=== PATIENT | female | born 1960 | race Asian ===

== ENCOUNTER → 2022-04-19 | Day surgery (SDC) | payer MEDICARE, OTHER ==
[~2022-04-19] MED LIST: ACETAMINOPHEN 325MG TABLET PO PRN; AMLO10TA80 PO; ASPI-1497 PO; ATOR-2 PO; ATROPINE SULFATE 1MG/10ML SYR IV PRN; FENTANYL CITRATE/PF 50MCG/ML 2ML VIAL ONE; GABA-532 PO; HEPARIN SODIUM 1,000 UNIT/1ML VIAL IV ONE; INSU100C6 SQ; INSU100I28 SQ; IODIXANOL 320MG/ML 100 ML BOTTLE IV ONE; LIDOCAINE HCL/PF 2% 20MG/ML 5 ML/VIAL ONE; MIDAZOLAM HCL 2 MG/2 ML VIAL ONE; ONDANSETRON HCL 4MG/2ML INJ IV PRN; TRIA1TAB94 MT
== END | disposition home or self-care (01) ==
LOC: CCL 06:44
PROVIDERS: ATTEND Specialist
DX: R94.39 Abnormal result of other cardiovascular function study (principal); I25.10 Atherosclerotic heart disease of native coronary artery without angina pectoris; E11.9 Type 2 diabetes mellitus without complications; I10 Essential (primary) hypertension; I42.8 Other cardiomyopathies; Z79.82 Long term (current) use of aspirin; Z79.84 Long term (current) use of oral hypoglycemic drugs; Z79.899 Other long term (current) drug therapy; Z98.890 Other specified postprocedural states
CPT/HCPCS: 93458; C1769; C1893; J1644; J2250; J3010; J3490; Q9967

== ENCOUNTER 2022-09-21 09:02 | Inpatient (IN) | payer MEDICARE, OTHER ==
[~2022-09-21] VITALS: Ht 154.9 cm; Wt 56.0 kg
[2022-09-21] VITALS (10 sets, daily range): BP systolic 111–150; BP diastolic 61–83
[~2022-09-21 09:02] MED LIST changes: -ACETAMINOPHEN 325MG TABLET PO PRN; -ATROPINE SULFATE 1MG/10ML SYR IV PRN; -FENTANYL CITRATE/PF 50MCG/ML 2ML VIAL ONE; -HEPARIN SODIUM 1,000 UNIT/1ML VIAL IV ONE; -IODIXANOL 320MG/ML 100 ML BOTTLE IV ONE; +ISOS30TA91 PO; -LIDOCAINE HCL/PF 2% 20MG/ML 5 ML/VIAL ONE; -MIDAZOLAM HCL 2 MG/2 ML VIAL ONE; -ONDANSETRON HCL 4MG/2ML INJ IV PRN
[2022-09-21] MEDS ORDERED: DIPHENHYDRAMINE 50MG/ML VIAL ONE (11:58)
[2022-09-21] MEDS ORDERED: HYDROCORTISONE SOD SUCCINATE 250 MG/2 ML VIAL ONE (11:58)
[2022-09-21] MEDS ORDERED: FAMOTIDINE 20MG/2ML VIAL IV ONE (11:59)
[2022-09-21] MEDS ORDERED: LIDOCAINE HCL 1% 20ML VIAL (Pyxis) INJ ONE ×2 (12:06→12:43)
[2022-09-21] MEDS ORDERED: FENTANYL CITRATE/PF 50MCG/ML 2ML VIAL ONE (12:06)
[2022-09-21] MEDS ORDERED: IODIXANOL 320MG/ML 100 ML BOTTLE IV ONE (12:06)
[2022-09-21] MEDS ORDERED: HEPARIN 1000 UNITS/ML 10ML ONE (12:06)
[2022-09-21] MEDS ORDERED: MIDAZOLAM HCL 2 MG/2 ML VIAL ONE (12:06)
[2022-09-21] MEDS ORDERED: INSU100C6 SQ (12:11)
[2022-09-21] MEDS ORDERED: CLOP-31 PO (12:11)
[2022-09-21] MEDS ORDERED: METH-371 PO (12:11)
[2022-09-21] MEDS ORDERED: CLOPIDOGREL 75MG TABLET ONE (13:18)
[2022-09-21] MEDS ORDERED: ASPIRIN 325MG TABLET ONE (13:18)
[2022-09-21] MEDS ORDERED: ACETAMINOPHEN 325MG TABLET PO PRN (13:30)
[2022-09-21] MEDS ORDERED: ATROPINE SULFATE 1MG/10ML SYR IV PRN (13:30)
[2022-09-21] MEDS ORDERED: ONDANSETRON HCL 4MG/2ML INJ IV PRN (13:30)
[2022-09-21] MEDS ORDERED: ALPRAZOLAM 0.25 MG TABLET PO PRN (15:00)
[2022-09-21] MEDS ORDERED: ISOSORBIDE MONONITRATE 30MG TABLET SR 24HR PO SCH (15:00)
[2022-09-21] MEDS ORDERED: AMLODIPINE 5MG TABLET PO NR (15:00)
[2022-09-21] MEDS ORDERED: ZOLPIDEM TARTRATE 5MG TABLET PO PRN (21:00)
[2022-09-21] MEDS ORDERED: ATORVASTATIN CALCIUM 40MG TABLET PO SCH (21:00)
[2022-09-21] MEDS ORDERED: DEXTROSE 50% WATER 50ML SYRINGE IV PRN (21:30)
[2022-09-21] MEDS ORDERED: INSULIN LISPRO 100 UNITS/ML SUBCUT NR (21:30)
[2022-09-21] MEDS: BLOOD SUGAR DIAGNOSTIC STRIP TEST SCH (21:30)
[2022-09-21] MEDS ORDERED: INSULIN LISPRO 100 UNITS/ML SUBCUT SCH (21:45)
[2022-09-21] MEDS: GABAPENTIN 300MG CAPSULE PO SCH (21:50)
[2022-09-21] MEDS: AMLODIPINE 5MG TABLET PO SCH (21:51)
[2022-09-22] VITALS: BP 120/70
[2022-09-22 04:00] VITALS: BP 109/54
[2022-09-22 06:22] LABS: BASOPHILS % 0.1 % (0.0-2.0); HEMATOCRIT. 26.9 % (36.0-48.0); HEMOGLOBIN. 9.1 g/dL (12.0-16.0); LYMPHOCYTES % 11.1 % (20.0-50.0); MEAN CORPUSCULAR HEMOGLOBIN 29.5 pg (28.0-32.0); MEAN CORPUSCULAR VOLUME 87.3 fL (81.0-99.0); MEAN PLATELET VOLUME 8.2 fl (7.4-10.4); MONOCYTES % 5.9 % (2.0-8.0); NEUTROPHILS % 82.9 % (40.0-76.0); PLATELET 272 x1000/uL (130-400); RED BLOOD CELL COUNT 3.08 mill/uL (4.2-5.4); RED CELL DISTRIBUTION WIDTH 14.2 % (11.6-14.6)
[2022-09-22] MEDS: GABAPENTIN 300MG CAPSULE PO SCH (06:28)
[2022-09-22] MEDS: BLOOD SUGAR DIAGNOSTIC STRIP TEST SCH (06:28)
[2022-09-22 06:35] LABS: CHLORIDE 110 mEq/L (98-107)
[2022-09-22] MEDS ORDERED: INSULIN LISPRO 100 UNITS/ML SUBCUT SCH (07:20)
[2022-09-22 08:00] VITALS: BP 114/66
[2022-09-22] MEDS ORDERED: ASPIRIN 325MG TABLET PO SCH (09:00)
[2022-09-22] MEDS ORDERED: CLOPIDOGREL 75MG TABLET PO SCH (09:00)
[2022-09-22] MEDS: AMLODIPINE 5MG TABLET PO SCH (09:05)
[2022-09-22 11:53] VITALS: BP 96/61
== END 2022-09-22 11:30 | disposition home or self-care (01) | DRG 253 ==
LOC: CCL 09:02 → 3WST 14:35
PROVIDERS: ADMIT Specialist; ATTEND Specialist
PROC: B41F1ZZ Fluoroscopy of Right Lower Extremity Arteries using Low Osmolar Contrast (ICD-10-PCS; principal; 2022-09-21)
PROC: 047K3DZ Dilation of Right Femoral Artery with Intraluminal Device, Percutaneous Approach (ICD-10-PCS; 2022-09-21)
DX: E11.51 Type 2 diabetes mellitus with diabetic peripheral angiopathy without gangrene (principal); I42.9 Cardiomyopathy, unspecified; I50.22 Chronic systolic (congestive) heart failure; E78.5 Hyperlipidemia, unspecified; I11.0 Hypertensive heart disease with heart failure; I25.10 Atherosclerotic heart disease of native coronary artery without angina pectoris; I25.2 Old myocardial infarction; Z95.5 Presence of coronary angioplasty implant and graft; D64.9 Anemia, unspecified; F41.9 Anxiety disorder, unspecified; Z79.4 Long term (current) use of insulin; Z91.041 Radiographic dye allergy status; Z88.6 Allergy status to analgesic agent
CPT/HCPCS: 36415; 37226; 75710; 80048; 82962; 83036; 85025; 85347; C1725; C1726; C1769; C1876; C1893; C1894; J1200; J1644; J1720; J1815; J2250; J3010; J3490; Q9967

== ENCOUNTER 2022-09-26 16:52 | Inpatient (IN) | payer MEDICARE, OTHER ==
[~2022-09-26] VITALS: Ht 147.3 cm; Wt 53.8 kg
[~2022-09-26 16:52] MED LIST changes: +CLOP-31 PO; +METH-371 PO
[2022-09-26] MEDS ORDERED: ASPIRIN 81MG TABLET PO ONE (17:30)
[2022-09-26 17:44] LABS: BASOPHILS % 0.6 % (0.0-2.0); EOSINOPHILS % 2.6 % (0.0-5.0); HEMATOCRIT. 31.6 % (36.0-48.0); HEMOGLOBIN. 10.6 g/dL (12.0-16.0); LYMPHOCYTES % 20.3 % (20.0-50.0); MEAN CORPUSCULAR HEMOGLOBIN 29.1 pg (28.0-32.0); MEAN CORPUSCULAR VOLUME 86.9 fL (81.0-99.0); MEAN PLATELET VOLUME 7.8 fl (7.4-10.4); MONOCYTES % 5.7 % (2.0-8.0); NEUTROPHILS % 70.8 % (40.0-76.0); PLATELET 310 x1000/uL (130-400); RED BLOOD CELL COUNT 3.63 mill/uL (4.2-5.4); RED CELL DISTRIBUTION WIDTH 14.9 % (11.6-14.6)
[2022-09-26 17:50] LABS: CHLORIDE 112 mEq/L (98-107)
[2022-09-26] MEDS: NITROGLYCERIN 0.4MG TABLET SL SL PRN ×2 (18:22→20:28)
[2022-09-26] MEDS ORDERED: HEPARIN 5000 UNITS/ML VIAL IV ONE (18:45)
[2022-09-26] MEDS ORDERED: HEPARIN 25,000 UNITS PREMIX 250 ML IV SCH ×2 (18:45→21:00)
[2022-09-26 19:00] LABS: INR 0.9
[2022-09-26] MEDS ORDERED: POTASSIUM CHLORIDE 20MEQ TABLET SR PO ONE (19:15)
[2022-09-26] MEDS ORDERED: ONDANSETRON HCL 4MG/2ML INJ IV STA (20:20)
[2022-09-26] MEDS ORDERED: MORPHINE SULFATE 4 MG/ML CPJ (NOT FOR IM USE) IV STA (20:20)
[2022-09-27] VITALS (56 sets, daily range): BP systolic 103–158; BP diastolic 22–126
[2022-09-27] MEDS ORDERED: HEPARIN BOLUS PRN aPTT <30 IV (03:00)
[2022-09-27] MEDS ORDERED: HEPARIN BOLUS PRN aPTT 30-44 IV (03:00)
[2022-09-27] MEDS ORDERED: BLOOD SUGAR DIAGNOSTIC STRIP TEST SCH (06:00)
[2022-09-27] MEDS ORDERED: ACETAMINOPHEN 325MG TABLET PO PRN (06:45)
[2022-09-27] MEDS ORDERED: DEXTROSE 50% WATER 50ML SYRINGE IV PRN ×2 (06:45→13:15)
[2022-09-27] MEDS ORDERED: AMLODIPINE 10MG TABLET PO SCH (09:00)
[2022-09-27] MEDS ORDERED: ISOSORBIDE MONONITRATE 30MG TABLET SR 24HR PO SCH (09:00)
[2022-09-27] MEDS ORDERED: DILTIAZEM HCL 180MG CAPSULE CD 24HR PO SCH (09:00)
[2022-09-27] MEDS ORDERED: CLOPIDOGREL 75MG TABLET PO SCH (09:00)
[2022-09-27] MEDS ORDERED: ASPIRIN 81MG EC TABLET PO SCH (09:00)
[2022-09-27] MEDS ORDERED: FUROSEMIDE 100MG/10ML VIAL IVP NR (09:30)
[2022-09-27] MEDS ORDERED: POTASSIUM CHLORIDE 20MEQ TABLET SR PO NR (09:45)
[2022-09-27] MEDS ORDERED: CLOPIDOGREL 75MG TABLET PO NR (10:00)
[2022-09-27] MEDS ORDERED: MORPHINE SULFATE 2 MG/ML CPJ (NOT FOR IM USE) IV NR (10:30)
[2022-09-27] MEDS ORDERED: POTASSIUM CHLORIDE INJ 40 MEQ in DEXT 5% WATER 250 ML IV ONE (10:30)
[2022-09-27] MEDS: ASPIRIN 81MG EC TABLET PO SCH (10:54)
[2022-09-27] MEDS: NITROGLYCERIN 50MG PREMIX 250 ML IV SCH ×2 (10:56→18:36)
[2022-09-27] MEDS: BLOOD SUGAR DIAGNOSTIC STRIP TEST SCH ×2 (12:00→18:05)
[2022-09-27 13:11] LABS: BASOPHILS % 0.2 % (0.0-2.0); EOSINOPHILS % 0.2 % (0.0-5.0); HEMATOCRIT. 37.4 % (36.0-48.0); HEMOGLOBIN. 11.9 g/dL (12.0-16.0); LYMPHOCYTES % 10.8 % (20.0-50.0); MEAN CORPUSCULAR HEMOGLOBIN 28.4 pg (28.0-32.0); MEAN CORPUSCULAR VOLUME 89.5 fL (81.0-99.0); MEAN PLATELET VOLUME 8.9 fl (7.4-10.4); MONOCYTES % 4.4 % (2.0-8.0); NEUTROPHILS % 84.4 % (40.0-76.0); PLATELET 341 x1000/uL (130-400); RED BLOOD CELL COUNT 4.18 mill/uL (4.2-5.4); RED CELL DISTRIBUTION WIDTH 15.1 % (11.6-14.6)
[2022-09-27 13:29] LABS: CHLORIDE 108 mEq/L (98-107)
[2022-09-27] MEDS ORDERED: IPRATROPIUM/ALBUTEROL 0.5-3(2.5)MG/3ML NEB HHN PRN (14:00)
[2022-09-27] MEDS: ENOXAPARIN 60MG/0.6ML SYR SUBCUT SCH ×2 (14:30→21:28)
[2022-09-27] MEDS: MORPHINE SULFATE 2 MG/ML CPJ (NOT FOR IM USE) IV PRN (14:31)
[2022-09-27] MEDS: INSULIN LISPRO 100 UNITS/ML SUBCUT SCH ×2 (14:32→18:57)
[2022-09-27] MEDS ORDERED: NALOXONE HCL 0.4MG/ML VIAL IV PRN (16:00)
[2022-09-27 16:42] LABS: BG BASE EXCESS -0.8 mmol/L (-2.0-2.0); BG CARBOXYHEMOGLOBIN 0.3 % (0.5-1.5); BG DEOXYHEMOGLOBIN 4.2 % (0.0-5.0); BG FRACTION INSPIRED OXYGEN 36; BG HCO3 ACT 22.6 mmol/L (22.0-26.0); BG METHEMOGLOBIN 0.1 % (0.0-1.5); BG OXYGEN SATURATION 95.8 % (92.0-98.5); BG OXYHEMOGLOBIN 95.4 % (94.0-97.0); BG PCO2 33.1 mmHg (35.0-45.0); BG PH 7.453 (7.350-7.450); BG PO2 81.1 mmHg (75.0-100.0); BG SAMPLE SITE RIGHT BRACHIAL; BG TOTAL HEMOGLOBIN 11.1 g/dL (12.0-18.0); BG VENT MODE NASAL CANNULA
[2022-09-27] MEDS ORDERED: IBUPROFEN 200MG TABLET PO PRN (17:00)
[2022-09-27] MEDS: ATORVASTATIN CALCIUM 40MG TABLET PO SCH (21:04)
[2022-09-27] MEDS: FUROSEMIDE 40MG/4ML VIAL IVP SCH (21:05)
[2022-09-27] MEDS: AMLODIPINE 2.5MG TABLET PO SCH (21:05)
[2022-09-28] VITALS (89 sets, daily range): BP systolic 85–148; BP diastolic 38–107
[2022-09-28] MEDS: NITROGLYCERIN 50MG PREMIX 250 ML IV SCH ×2 (00:42→22:07)
[2022-09-28] MEDS: INSULIN LISPRO 100 UNITS/ML SUBCUT SCH ×4 (01:12→17:32)
[2022-09-28] MEDS: BLOOD SUGAR DIAGNOSTIC STRIP TEST SCH ×5 (01:15→21:00)
[2022-09-28] MEDS: MORPHINE SULFATE 2 MG/ML CPJ (NOT FOR IM USE) IV PRN (04:38)
[2022-09-28 05:46] LABS: BASOPHILS % 0.3 % (0.0-2.0); EOSINOPHILS % 2.5 % (0.0-5.0); HEMATOCRIT. 30.2 % (36.0-48.0); HEMOGLOBIN. 10.2 g/dL (12.0-16.0); LYMPHOCYTES % 22.1 % (20.0-50.0); MEAN CORPUSCULAR HEMOGLOBIN 29.3 pg (28.0-32.0); MEAN CORPUSCULAR VOLUME 86.8 fL (81.0-99.0); NEUTROPHILS % 67.1 % (40.0-76.0); PLATELET 349 x1000/uL (130-400); RED BLOOD CELL COUNT 3.47 mill/uL (4.2-5.4); RED CELL DISTRIBUTION WIDTH 14.4 % (11.6-14.6)
[2022-09-28 06:17] LABS: CHLORIDE 108 mEq/L (98-107)
[2022-09-28 08:15] LABS: BG BASE EXCESS 1.2 mmol/L (-2.0-2.0); BG CARBOXYHEMOGLOBIN 0.3 % (0.5-1.5); BG DEOXYHEMOGLOBIN 3.4 % (0.0-5.0); BG FRACTION INSPIRED OXYGEN 32; BG HCO3 ACT 23.7 mmol/L (22.0-26.0); BG METHEMOGLOBIN 0.3 % (0.0-1.5); BG OXYGEN SATURATION 96.6 % (92.0-98.5); BG PCO2 30.1 mmHg (35.0-45.0); BG PH 7.514 (7.350-7.450); BG PO2 86.6 mmHg (75.0-100.0); BG SAMPLE SITE RIGHT BRACHIAL; BG TOTAL HEMOGLOBIN 9.6 g/dL (12.0-18.0); BG TOTAL RESPIRATORY RATE 18 b/min; BG VENT MODE NASAL CANNULA
[2022-09-28] MEDS: AMLODIPINE 2.5MG TABLET PO SCH (09:00)
[2022-09-28] MEDS: FUROSEMIDE 40MG/4ML VIAL IVP SCH ×2 (09:00→21:25)
[2022-09-28] MEDS: ASPIRIN 81MG EC TABLET PO SCH (09:00)
[2022-09-28] MEDS: CLOPIDOGREL 75MG TABLET PO SCH (09:00)
[2022-09-28] MEDS ORDERED: DIPHENHYDRAMINE 50MG/ML VIAL IV SCH (09:15)
[2022-09-28] MEDS ORDERED: ONDANSETRON HCL 4MG/2ML INJ IV NR (09:15)
[2022-09-28] MEDS ORDERED: FAMOTIDINE 20MG/2ML VIAL IV SCH (09:15)
[2022-09-28] MEDS ORDERED: HYDROCORTISONE SOD SUCCINATE 100 MG/2 ML VIAL IV SCH (09:15)
[2022-09-28] MEDS ORDERED: DIPHENHYDRAMINE 50MG/ML VIAL ONE (09:24)
[2022-09-28] MEDS ORDERED: FAMOTIDINE 20MG/2ML VIAL IV ONE (09:24)
[2022-09-28] MEDS ORDERED: IODIXANOL 320MG/ML 100 ML BOTTLE IV ONE (09:24)
[2022-09-28] MEDS ORDERED: HEPARIN 1000 UNITS/ML 10ML ONE (09:24)
[2022-09-28] MEDS ORDERED: LIDOCAINE HCL 1% 20ML VIAL (Pyxis) INJ ONE (09:24)
[2022-09-28] MEDS ORDERED: HYDROCORTISONE SOD SUCCINATE 250 MG/2 ML VIAL ONE (09:24)
[2022-09-28] MEDS ORDERED: ONDANSETRON HCL 4MG/2ML INJ IV PRN ×2 (09:30→11:00)
[2022-09-28] MEDS ORDERED: ASPIRIN/SOD BICARB/CITRIC ACID 324MG TAB EFF ONE (09:55)
[2022-09-28] MEDS ORDERED: FENTANYL CITRATE/PF 50MCG/ML 2ML VIAL ONE (10:14)
[2022-09-28] MEDS ORDERED: MIDAZOLAM HCL 2 MG/2 ML VIAL ONE (10:14)
[2022-09-28] MEDS ORDERED: MORPHINE SULFATE 2 MG/ML CPJ (NOT FOR IM USE) IV PRN (11:00)
[2022-09-28] MEDS ORDERED: ACETAMINOPHEN 325MG TABLET PO PRN (11:00)
[2022-09-28] MEDS ORDERED: ATROPINE SULFATE 1MG/10ML SYR IV PRN (11:00)
[2022-09-28] MEDS ORDERED: CARVEDILOL 3.125 MG TABLET PO NR (11:15)
[2022-09-28] MEDS ORDERED: NITROGLYCERIN 50MCG/ML 10ML VIAL (CATH LAB) IV ONE (12:00)
[2022-09-28] MEDS ORDERED: NICARDIPINE 100MCG/ML 10ML VIAL (CATH LAB) IV ONE (12:00)
[2022-09-28] MEDS: SPIRONOLACTONE 25MG TABLET PO SCH (12:19)
[2022-09-28] MEDS: LOSARTAN POTASSIUM 25 MG TABLET PO SCH (14:00)
[2022-09-28] MEDS: ATORVASTATIN CALCIUM 40MG TABLET PO SCH (21:25)
[2022-09-28] MEDS ORDERED: INSULIN GLARGINE 100 UNITS/ML SUBCUT SCH (22:09)
[2022-09-28] MEDS ORDERED: DEXTROSE 50% WATER 50ML SYRINGE IV PRN (22:15)
[2022-09-29] VITALS (48 sets, daily range): BP systolic 38–142; BP diastolic 19–95
[2022-09-29] MEDS: BLOOD SUGAR DIAGNOSTIC STRIP TEST SCH ×4 (05:12→20:46)
[2022-09-29 05:27] LABS: BASOPHILS % 0.3 % (0.0-2.0); HEMATOCRIT. 27.9 % (36.0-48.0); HEMOGLOBIN. 9.3 g/dL (12.0-16.0); LYMPHOCYTES % 13.5 % (20.0-50.0); MEAN CORPUSCULAR HEMOGLOBIN 29.1 pg (28.0-32.0); MEAN CORPUSCULAR VOLUME 87.4 fL (81.0-99.0); MEAN PLATELET VOLUME 7.8 fl (7.4-10.4); NEUTROPHILS % 78.2 % (40.0-76.0); PLATELET 310 x1000/uL (130-400); RED BLOOD CELL COUNT 3.19 mill/uL (4.2-5.4); RED CELL DISTRIBUTION WIDTH 14.6 % (11.6-14.6)
[2022-09-29] MEDS: INSULIN LISPRO 100 UNITS/ML SUBCUT SCH ×4 (06:05→20:46)
[2022-09-29] MEDS: FUROSEMIDE 40MG/4ML VIAL IVP SCH ×2 (08:13→20:45)
[2022-09-29] MEDS: ENOXAPARIN 40MG/0.4ML SYR SUBCUT SCH (08:14)
[2022-09-29] MEDS: ASPIRIN 81MG EC TABLET PO SCH (08:15)
[2022-09-29] MEDS: CLOPIDOGREL 75MG TABLET PO SCH (08:15)
[2022-09-29] MEDS: SPIRONOLACTONE 25MG TABLET PO SCH (08:16)
[2022-09-29] MEDS: CARVEDILOL 3.125 MG TABLET PO SCH ×2 (08:17→20:45)
[2022-09-29] MEDS: LOSARTAN POTASSIUM 25 MG TABLET PO SCH (08:17)
[2022-09-29] MEDS: INSULIN GLARGINE 100 UNITS/ML SUBCUT SCH ×2 (10:00→21:06)
[2022-09-29 10:06] LABS: BG BASE EXCESS 3.7 mmol/L (-2.0-2.0); BG CARBOXYHEMOGLOBIN 0.3 % (0.5-1.5); BG DEOXYHEMOGLOBIN 10.7 % (0.0-5.0); BG HCO3 ACT 26.6 mmol/L (22.0-26.0); BG METHEMOGLOBIN 0.7 % (0.0-1.5); BG OXYGEN SATURATION 89.2 % (92.0-98.5); BG OXYHEMOGLOBIN 88.3 % (94.0-97.0); BG PCO2 34.4 mmHg (35.0-45.0); BG PH 7.507 (7.350-7.450); BG TOTAL HEMOGLOBIN 10.6 g/dL (12.0-18.0)
[2022-09-29] MEDS ORDERED: POTASSIUM CHLORIDE 20MEQ/PACKET PO SCH (11:00)
[2022-09-29 11:21] LABS: BG FRACTION INSPIRED OXYGEN 21; BG SAMPLE SITE RIGHT RADIAL; BG VENT MODE ROOM AIR
[2022-09-29] MEDS: NITROGLYCERIN OINT 1GM/INCH UDPKT TD SCH ×2 (14:00→20:46)
[2022-09-29] MEDS: ATORVASTATIN CALCIUM 40MG TABLET PO SCH (20:45)
[2022-09-30] VITALS (9 sets, daily range): BP systolic 99–142; BP diastolic 42–63
[2022-09-30] MEDS: NITROGLYCERIN OINT 1GM/INCH UDPKT TD SCH ×3 (06:33→21:50)
[2022-09-30] MEDS: INSULIN LISPRO 100 UNITS/ML SUBCUT SCH ×4 (06:33→21:00)
[2022-09-30] MEDS: BLOOD SUGAR DIAGNOSTIC STRIP TEST SCH ×4 (06:33→21:42)
[2022-09-30 06:40] LABS: BASOPHILS % 0.3 % (0.0-2.0); EOSINOPHILS % 3.2 % (0.0-5.0); HEMATOCRIT. 28.6 % (36.0-48.0); HEMOGLOBIN. 9.8 g/dL (12.0-16.0); LYMPHOCYTES % 22.2 % (20.0-50.0); MEAN CORPUSCULAR HEMOGLOBIN 29.4 pg (28.0-32.0); MEAN PLATELET VOLUME 7.4 fl (7.4-10.4); MONOCYTES % 7.7 % (2.0-8.0); NEUTROPHILS % 66.6 % (40.0-76.0); PLATELET 312 x1000/uL (130-400); RED BLOOD CELL COUNT 3.32 mill/uL (4.2-5.4); RED CELL DISTRIBUTION WIDTH 14.5 % (11.6-14.6)
[2022-09-30] MEDS: POTASSIUM CHLORIDE 20MEQ/PACKET PO SCH (09:14)
[2022-09-30] MEDS: CLOPIDOGREL 75MG TABLET PO SCH (09:14)
[2022-09-30] MEDS: ASPIRIN 81MG EC TABLET PO SCH (09:15)
[2022-09-30] MEDS: CARVEDILOL 3.125 MG TABLET PO SCH (09:15)
[2022-09-30] MEDS: LOSARTAN POTASSIUM 25 MG TABLET PO SCH (09:15)
[2022-09-30] MEDS: FUROSEMIDE 40MG/4ML VIAL IVP SCH ×2 (09:15→21:00)
[2022-09-30] MEDS: ENOXAPARIN 40MG/0.4ML SYR SUBCUT SCH (09:16)
[2022-09-30] MEDS: INSULIN GLARGINE 100 UNITS/ML SUBCUT SCH ×2 (09:21→21:44)
[2022-09-30 10:23] LABS: BG BASE EXCESS 5.5 mmol/L (-2.0-2.0); BG CARBOXYHEMOGLOBIN 0.3 % (0.5-1.5); BG DEOXYHEMOGLOBIN 2.7 % (0.0-5.0); BG FRACTION INSPIRED OXYGEN 21; BG HCO3 ACT 26.3 mmol/L (22.0-26.0); BG METHEMOGLOBIN 0.3 % (0.0-1.5); BG OXYGEN SATURATION 97.3 % (92.0-98.5); BG OXYHEMOGLOBIN 96.7 % (94.0-97.0); BG PCO2 26.4 mmHg (35.0-45.0); BG PH 7.617 (7.350-7.450); BG PO2 85.2 mmHg (75.0-100.0); BG SAMPLE SITE RIGHT BRACHIAL; BG TOTAL HEMOGLOBIN 10.5 g/dL (12.0-18.0); BG VENT MODE ROOM AIR
[2022-09-30] MEDS: CARVEDILOL 6.25 MG TABLET PO SCH (21:00)
[2022-09-30] MEDS: ATORVASTATIN CALCIUM 40MG TABLET PO SCH (21:42)
[2022-10-01] MEDS: NITROGLYCERIN OINT 1GM/INCH UDPKT TD SCH ×3 (06:00→20:08)
[2022-10-01] MEDS: BLOOD SUGAR DIAGNOSTIC STRIP TEST SCH ×4 (07:01→20:07)
[2022-10-01] MEDS: INSULIN LISPRO 100 UNITS/ML SUBCUT SCH ×4 (07:01→20:07)
[2022-10-01 07:06] LABS: BASOPHILS % 0.7 % (0.0-2.0); EOSINOPHILS % 2.2 % (0.0-5.0); HEMATOCRIT. 30.1 % (36.0-48.0); HEMOGLOBIN. 10.3 g/dL (12.0-16.0); LYMPHOCYTES % 16.7 % (20.0-50.0); MEAN CORPUSCULAR HEMOGLOBIN 29.6 pg (28.0-32.0); MEAN CORPUSCULAR VOLUME 86.8 fL (81.0-99.0); MONOCYTES % 9.3 % (2.0-8.0); NEUTROPHILS % 71.1 % (40.0-76.0); PLATELET 327 x1000/uL (130-400); RED BLOOD CELL COUNT 3.47 mill/uL (4.2-5.4)
[2022-10-01 07:22] LABS: CHLORIDE 107 mEq/L (98-107)
[2022-10-01 08:00] VITALS: BP 115/62
[2022-10-01] MEDS: LOSARTAN POTASSIUM 25 MG TABLET PO SCH (08:58)
[2022-10-01] MEDS: ASPIRIN 81MG EC TABLET PO SCH (08:58)
[2022-10-01] MEDS: POTASSIUM CHLORIDE 20MEQ/PACKET PO SCH (08:58)
[2022-10-01] MEDS: ENOXAPARIN 40MG/0.4ML SYR SUBCUT SCH (08:59)
[2022-10-01] MEDS: CARVEDILOL 6.25 MG TABLET PO SCH ×2 (08:59→20:08)
[2022-10-01] MEDS: FUROSEMIDE 40MG/4ML VIAL IVP SCH ×2 (08:59→20:27)
[2022-10-01] MEDS: CLOPIDOGREL 75MG TABLET PO SCH (09:00)
[2022-10-01] MEDS: INSULIN GLARGINE 100 UNITS/ML SUBCUT SCH (09:06)
[2022-10-01] MEDS ORDERED: POTASSIUM CHLORIDE 20MEQ TABLET SR PO NR (09:30)
[2022-10-01] MEDS ORDERED: POTASSIUM CHLORIDE 20MEQ/PACKET PO NR (09:45)
[2022-10-01 12:00] VITALS: BP 98/57
[2022-10-01] MEDS ORDERED: IPRATROPIUM BROMIDE (0.02%) 0.5MG/2.5ML NEB HHN PRN (12:45)
[2022-10-01] MEDS ORDERED: ALBUTEROL (0.083%) 2.5MG/3ML NEB HHN PRN (12:45)
[2022-10-01 16:00] VITALS: BP 101/54
[2022-10-01] MEDS ORDERED: GUAIFENESIN-DM 200MG-20MG/10ML UDC PO PRN (17:45)
[2022-10-01 20:00] VITALS: BP 93/42
[2022-10-01] MEDS: ATORVASTATIN CALCIUM 40MG TABLET PO SCH (20:28)
[2022-10-02] VITALS: BP 117/63
[2022-10-02 04:00] VITALS: BP 103/54
[2022-10-02] MEDS: NITROGLYCERIN OINT 1GM/INCH UDPKT TD SCH (05:37)
[2022-10-02] MEDS: BLOOD SUGAR DIAGNOSTIC STRIP TEST SCH ×3 (05:43→20:06)
[2022-10-02 06:36] LABS: BASOPHILS % 0.6 % (0.0-2.0); EOSINOPHILS % 4.1 % (0.0-5.0); HEMATOCRIT. 32.2 % (36.0-48.0); HEMOGLOBIN. 10.8 g/dL (12.0-16.0); LYMPHOCYTES % 22.3 % (20.0-50.0); MEAN CORPUSCULAR HEMOGLOBIN 28.8 pg (28.0-32.0); MEAN CORPUSCULAR VOLUME 86.2 fL (81.0-99.0); MONOCYTES % 9.4 % (2.0-8.0); NEUTROPHILS % 63.6 % (40.0-76.0); PLATELET 334 x1000/uL (130-400); RED BLOOD CELL COUNT 3.74 mill/uL (4.2-5.4); RED CELL DISTRIBUTION WIDTH 15.2 % (11.6-14.6)
[2022-10-02] MEDS: INSULIN LISPRO 100 UNITS/ML SUBCUT SCH ×3 (07:07→20:39)
[2022-10-02 07:47] LABS: PHOSPHORUS 3.5 mg/dL (2.5-4.9)
[2022-10-02 08:00] VITALS: BP 104/59
[2022-10-02] MEDS ORDERED: POTASSIUM CHLORIDE 20MEQ TABLET SR PO SCH (08:15)
[2022-10-02] MEDS: LOSARTAN POTASSIUM 25 MG TABLET PO SCH (09:00)
[2022-10-02] MEDS: CARVEDILOL 6.25 MG TABLET PO SCH (09:00)
[2022-10-02] MEDS: ENOXAPARIN 40MG/0.4ML SYR SUBCUT SCH (09:42)
[2022-10-02] MEDS: FUROSEMIDE 40MG/4ML VIAL IVP SCH ×2 (09:42→20:31)
[2022-10-02] MEDS: POTASSIUM CHLORIDE 20MEQ/PACKET PO SCH ×2 (09:43→20:32)
[2022-10-02] MEDS: ASPIRIN 81MG EC TABLET PO SCH (09:43)
[2022-10-02] MEDS: CLOPIDOGREL 75MG TABLET PO SCH (09:43)
[2022-10-02 12:00] VITALS: BP 114/58
[2022-10-02] MEDS: MAGNESIUM OXIDE 400MG TABLET PO SCH (12:15)
[2022-10-02 16:00] VITALS: BP 102/59
[2022-10-02 20:00] VITALS: BP 105/60
[2022-10-02] MEDS: CARVEDILOL 3.125 MG TABLET PO SCH (20:31)
[2022-10-02] MEDS: ATORVASTATIN CALCIUM 40MG TABLET PO SCH (20:31)
[2022-10-03] VITALS: BP 95/54
[2022-10-03 04:00] VITALS: BP 112/64
[2022-10-03] MEDS: BLOOD SUGAR DIAGNOSTIC STRIP TEST SCH ×4 (05:40→20:17)
[2022-10-03] MEDS: INSULIN LISPRO 100 UNITS/ML SUBCUT SCH ×4 (06:10→22:20)
[2022-10-03 06:24] LABS: BASOPHILS % 0.6 % (0.0-2.0); EOSINOPHILS % 5.1 % (0.0-5.0); HEMATOCRIT. 31.5 % (36.0-48.0); HEMOGLOBIN. 10.3 g/dL (12.0-16.0); LYMPHOCYTES % 28.8 % (20.0-50.0); MEAN CORPUSCULAR HEMOGLOBIN 28.3 pg (28.0-32.0); MEAN CORPUSCULAR VOLUME 86.4 fL (81.0-99.0); MEAN PLATELET VOLUME 8.1 fl (7.4-10.4); MONOCYTES % 11.4 % (2.0-8.0); NEUTROPHILS % 54.1 % (40.0-76.0); PLATELET 327 x1000/uL (130-400); RED BLOOD CELL COUNT 3.65 mill/uL (4.2-5.4); RED CELL DISTRIBUTION WIDTH 15.3 % (11.6-14.6)
[2022-10-03 08:00] VITALS: BP 94/53
[2022-10-03] MEDS: LOSARTAN POTASSIUM 25 MG TABLET PO SCH (09:00)
[2022-10-03] MEDS: CARVEDILOL 3.125 MG TABLET PO SCH ×2 (09:00→21:00)
[2022-10-03] MEDS: MAGNESIUM OXIDE 400MG TABLET PO SCH (09:00)
[2022-10-03] MEDS: ASPIRIN 81MG EC TABLET PO SCH (09:22)
[2022-10-03] MEDS: ENOXAPARIN 40MG/0.4ML SYR SUBCUT SCH (09:23)
[2022-10-03] MEDS: CLOPIDOGREL 75MG TABLET PO SCH (09:23)
[2022-10-03] MEDS: POTASSIUM CHLORIDE 20MEQ/PACKET PO SCH ×2 (09:23→21:00)
[2022-10-03] MEDS: LEVOFLOXACIN 250MG TABLET PO SCH (11:47)
[2022-10-03 12:00] VITALS: BP 107/57
[2022-10-03 16:00] VITALS: BP 102/46
[2022-10-03] MEDS: FUROSEMIDE 40MG/4ML VIAL IVP SCH ×2 (16:53→22:14)
[2022-10-03 20:00] VITALS: BP 95/51
[2022-10-03] MEDS: ATORVASTATIN CALCIUM 40MG TABLET PO SCH (22:14)
[2022-10-04] VITALS: BP 94/48
[2022-10-04 04:00] VITALS: BP 91/46
[2022-10-04] MEDS: BLOOD SUGAR DIAGNOSTIC STRIP TEST SCH ×2 (06:40→11:34)
[2022-10-04] MEDS: INSULIN LISPRO 100 UNITS/ML SUBCUT SCH ×2 (07:10→12:01)
[2022-10-04 08:00] VITALS: BP 102/58
[2022-10-04] MEDS: FUROSEMIDE 40MG/4ML VIAL IVP SCH (08:51)
[2022-10-04] MEDS: POTASSIUM CHLORIDE 20MEQ/PACKET PO SCH (08:51)
[2022-10-04] MEDS: ENOXAPARIN 40MG/0.4ML SYR SUBCUT SCH (08:51)
[2022-10-04] MEDS: ASPIRIN 81MG EC TABLET PO SCH (08:52)
[2022-10-04] MEDS: LOSARTAN POTASSIUM 25 MG TABLET PO SCH (08:52)
[2022-10-04] MEDS: MAGNESIUM OXIDE 400MG TABLET PO SCH (08:58)
[2022-10-04] MEDS: CARVEDILOL 3.125 MG TABLET PO SCH (08:58)
[2022-10-04] MEDS: CLOPIDOGREL 75MG TABLET PO SCH (08:58)
[2022-10-04] MEDS: LEVOFLOXACIN 250MG TABLET PO SCH (11:34)
[2022-10-04 12:00] VITALS: BP 107/57
[2022-10-04 13:29] VITALS: BP 107/57
== END 2022-10-04 13:40 | disposition home or self-care (01) | DRG 280 ==
LOC: ER 16:52 → MICUSO 18:42 → EDBEDREQTM 18:46 → EDBEDREQ 18:46 → 5EST 09-27 03:15 → MICUSO 09-27 10:10 → MICUNO 09-29 10:50 → 7EST 09-30 11:42
PROVIDERS: ADMIT Internal Medicine; ATTEND Internal Medicine
PROC: 4A023N7 Measurement of Cardiac Sampling and Pressure, Left Heart, Percutaneous Approach (ICD-10-PCS; principal; 2022-09-28)
PROC: B2111ZZ Fluoroscopy of Multiple Coronary Arteries using Low Osmolar Contrast (ICD-10-PCS; 2022-09-28)
DX: I21.4 Non-ST elevation (NSTEMI) myocardial infarction (principal); I50.21 Acute systolic (congestive) heart failure; J96.21 Acute and chronic respiratory failure with hypoxia; I13.0 Hypertensive heart and chronic kidney disease with heart failure and stage 1 through stage 4 chronic kidney disease, or unspecified chronic kidney disease; N18.9 Chronic kidney disease, unspecified; Z20.822 Contact with and (suspected) exposure to COVID-19; E11.22 Type 2 diabetes mellitus with diabetic chronic kidney disease; D64.9 Anemia, unspecified; I73.9 Peripheral vascular disease, unspecified; I25.5 Ischemic cardiomyopathy; E87.6 Hypokalemia; F41.9 Anxiety disorder, unspecified; I95.9 Hypotension, unspecified; I25.10 Atherosclerotic heart disease of native coronary artery without angina pectoris; M19.90 Unspecified osteoarthritis, unspecified site; E83.42 Hypomagnesemia; I49.1 Atrial premature depolarization; Z79.4 Long term (current) use of insulin; Z88.8 Allergy status to other drugs, medicaments and biological substances; I25.2 Old myocardial infarction; Z79.02 Long term (current) use of antithrombotics/antiplatelets; Z79.82 Long term (current) use of aspirin; Z79.899 Other long term (current) drug therapy; Z91.041 Radiographic dye allergy status; Z95.5 Presence of coronary angioplasty implant and graft; Z82.49 Family history of ischemic heart disease and other diseases of the circulatory system; Z83.3 Family history of diabetes mellitus
CPT/HCPCS: 36415; 36600; 71045; 76857; 78580; 80048; 80053; 82375; 82805; 82962; 83036; 83735; 83880; 84100; 84484; 85025; 85379; 87426; 93005; 93306; 93458; 93970; 94640; 99291; C1769; C1893; J1200; J1644; J1650; J1720; J1815; J1940; J2250; J2270; J2405; J3010; J3490; Q9967